=== PATIENT | female | born 1960 | race Caucasian/White ===

== ENCOUNTER 2019-11-07 20:56 | Emergency (ER) | payer MEDICAID ==
[~2019-11-07] VITALS: Ht 160 cm; Wt 82.6 kg
[2019-11-07 21:02] VITALS: BP 149/83; Ht 160 cm; Wt 82.6 kg
== END 2019-11-07 22:23 | disposition home or self-care (01) ==
LOC: ED 20:56
DX: N39.0 Urinary tract infection, site not specified (principal)
CPT/HCPCS: J1885